=== PATIENT | female | born 1980 | race Two or more races ===

== ENCOUNTER 2017-11-13 12:27 | Outpatient (CLI) | payer OTHER ==
[~2017-11-13 12:27] MED LIST: CATAFLAM50 MG PO; DEXAMETHAS0.5 MG/5 M PO
== END 2017-11-13 12:35 | disposition home or self-care (01) ==
LOC: MAMO-SONO 12:27
DX: Z12.31 Encounter for screening mammogram for malignant neoplasm of breast (principal); N60.11 Diffuse cystic mastopathy of right breast

== ENCOUNTER 2018-03-29 14:31 | Emergency (ER) | payer OTHER ==
[~2018-03-29] VITALS: Ht 152.4 cm; Wt 56.2 kg
[2018-03-29] MEDS ORDERED: ADVIL100 M1 (15:17)
== END 2018-03-29 18:12 | disposition home or self-care (01) ==
LOC: ER 14:31
DX: H60.8X1 Other otitis externa, right ear (principal); R51 Headache

== ENCOUNTER 2019-02-03 14:02 | Outpatient (CLI) | payer OTHER ==
[~2019-02-03 14:02] MED LIST changes: +ADVIL100 M1
== END 2019-02-03 14:03 | disposition home or self-care (01) ==
LOC: RAD 14:02
DX: M77.31 Calcaneal spur, right foot (principal)

== ENCOUNTER 2019-02-04 10:49 | Outpatient (CLI) | payer OTHER | END 2019-02-04 14:35 | disposition home or self-care (01) | LOC: MAMO-SONO 10:49 | DX: Z12.31 Encounter for screening mammogram for malignant neoplasm of breast (principal); N63.10 Unspecified lump in the right breast, unspecified quadrant; N63.20 Unspecified lump in the left breast, unspecified quadrant ==

== ENCOUNTER 2019-03-11 12:24 | Outpatient (CLI) | payer OTHER | END 2019-03-11 12:30 | disposition home or self-care (01) | LOC: RAD 12:24 | DX: M25.511 Pain in right shoulder (principal); G56.03 Carpal tunnel syndrome, bilateral upper limbs ==

== ENCOUNTER 2023-05-06 11:54 | Outpatient (CLI) | payer OTHER ==
[~2023-05-06 11:54] MED LIST changes: +METFORMIN HCL500 M3; +MUCINEX DM ER1 EAC1 PO; +NAPROXEN375 MG PO; +ZYRTEC10 MG PO
== END 2023-05-06 12:01 | disposition home or self-care (01) ==
LOC: MAMO-SONO 11:54
DX: N64.4 Mastodynia (principal); E04.1 Nontoxic single thyroid nodule; N63.0 Unspecified lump in unspecified breast; N60.09 Solitary cyst of unspecified breast; Z12.31 Encounter for screening mammogram for malignant neoplasm of breast

== ENCOUNTER 2024-01-22 13:17 | Outpatient (CLI) | payer OTHER | END 2024-01-22 13:30 | disposition home or self-care (01) | LOC: RAD 13:17 | PROVIDERS: ATTEND Physical Medicine & Rehabilitation Hospice and Palliative Medicine | DX: M25.512 Pain in left shoulder (principal); M75.102 Unspecified rotator cuff tear or rupture of left shoulder, not specified as traumatic ==

== ENCOUNTER 2024-12-24 11:27 | Outpatient (CLI) | payer OTHER | END 2024-12-24 11:34 | disposition home or self-care (01) | LOC: MAMO-SONO 11:27 | PROVIDERS: ATTEND Obstetrics & Gynecology | DX: N64.4 Mastodynia (principal); N63.0 Unspecified lump in unspecified breast; N60.09 Solitary cyst of unspecified breast; Z12.31 Encounter for screening mammogram for malignant neoplasm of breast; E04.1 Nontoxic single thyroid nodule ==